=== PATIENT | female | born 2005 | race Caucasian/White ===

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

== ENCOUNTER → 2025-05-29 | Outpatient (CLI) | payer OTHER | LOC: M RAD 08:21 | PROVIDERS: ATTEND Physician Assistant Surgical | DX: S82.65XS Nondisplaced fracture of lateral malleolus of left fibula, sequela (principal) ==